=== PATIENT | male | born 1995 | race Two or more races ===

== ENCOUNTER 2017-06-06 17:29 | Emergency (ER) | payer OTHER ==
[~2017-06-06] VITALS: Ht 188 cm; Wt 79.4 kg
--- NOTE | 2017-06-06 17:29 | NUR ---
R WRIST INJURY S/P SKATEBOARDING FALL 1 HR [employer]
[2017-06-06] MEDS ORDERED: IBUPROFEN 600 MG TABLET PO ONE ×2 (18:00→18:07)
--- NOTE | 2017-06-06 18:45 | NUR ---
Patient discharged to home in stable condition. Written and verbal after care instructions given. Patient verbalizes understanding of instruction.
[2017-06-06 18:58] VITALS: BP 123/84
== END 2017-06-06 19:00 | disposition home or self-care (01) ==
LOC: ER 17:36
DX: S52.501A Unspecified fracture of the lower end of right radius, initial encounter for closed fracture (principal); F12.90 Cannabis use, unspecified, uncomplicated; F10.10 Alcohol abuse, uncomplicated; F17.200 Nicotine dependence, unspecified, uncomplicated; V00.131A Fall from skateboard, initial encounter; Y93.51 Activity, roller skating (inline) and skateboarding; Y92.89 Other specified places as the place of occurrence of the external cause; Y99.8 Other external cause status
CPT/HCPCS: 73110; A4606; Z7610